=== PATIENT | female | born 1965 | race Caucasian/White ===

== ENCOUNTER 2016-08-15 13:10 | Emergency (ER) | payer OTHER ==
[2016-08-15 14:17] VITALS: TEMP 98.7; BMI 20.7
[2016-08-15] MEDS ORDERED: CYCLOBENZAPRINE 10 MG TAB PO ONE (14:18)
[2016-08-15] MEDS ORDERED: OXYCODONE HCL 5 MG TABLET PO ONE (14:18)
--- NOTE | 2016-08-15 14:18 | EDPRACDOC ---
- General Information Chief Complaint: Back Pain Stated Complaint: BACK PAIN Time Seen by Provider: 08/15/16 14:11 Home Medications: Home Medications Prednisone [Deltasone, Orasone] 1 tab PO DAILY #10 tablet 01/07/15 Cyclobenzaprine HCl [Flexeril] 10 mg PO TID PRN #20 tablet 08/15/16 Ketoprofen 50 mg PO BID PRN #20 capsule 08/15/16 Metoprolol Tartrate [Lopressor] 25 mg PO DAILY #30 tablet 08/15/16 Allergies/Adverse Reactions: Allergies Allergy/AdvReac Type Severity Reaction Status Date / Time Penicillins Allergy Edema-Oral/ Verified 07/21/14 12:08 Lip - History of Present Illness Onset: LAST NIGHT HPI: PT STATES SHE WAS GOING UP STEPS LAST NIGHT, SLIPPED AND FELL BACKWARDS, TWISTED HER BACK, STATES SHE CAUGHT HERSELF WITH HER RIGHT HAND. PT COMPLAINS OF SHARP STABBING PAIN IN LEFT LOWER BACK, RADIATING DOWN LEFT LEG, NO NUMBNESS OR TINGLING, NO BOWEL OR BLADDER DYSFUNCTION. Pain Location: Reports: Left, Lower, Lumbar Pain Radiates To: Reports: None Pain Caused By: Reports: Blunt Trauma, Twisting Circumstances: Reports: Fall Relevant History: Reports: None Pain Severity: Reports: Severe Pain Quality: Reports: Sharp, Stabbing Worsened By: Reports: Movement, Twisting, Walking Associated Signs and Symptoms: Denies: Abdominal Pain, Dysuria, Hematuria, Nausea, Vomiting ED Past Medical History - History Reviewed Yes Nurses notes reviewed and agree except as marked - Patient Medical History Cardiac History: Reports: Hypertension ("ONLY WHEN I'M ANXIOUS") Psychological History: Reports: Anxiety Systemic History: Denies: Cancer Surgical History: Reports: Other (TUBAL LIGATION) - Family Medical History Reports: Diabetes (AUNTS), Cancer (FATHER RENAL), Cardiac Disorders (MOTHER CO) . Denies: Hypertension, Stroke - Social Medical History Smoking Status: Heavy tobacco smoker (5 or more cigarettes/day or daily pipe/ cigar) ETOH: None Substance Abuse: None EDM Review of Systems - Review of Systems Constitutional: negative: Chills, Fever Genitourinary: negative: Dysuria, Frequency Neurological: negative: Dizziness, Headache, Numbness, Weakness Musculoskeletal: Back Integumentary: No Symptoms Reported - Physical Exam Constitutional: Alert (Awake), No apparent distress Oriented to: Time, Person, Place Last recorded Vital Signs: Oxygen Pulse Oxygen Saturation O2 Device Oxygen Flow Rate Fraction of Inspired Oxygen ( FIO2) - HEENT Head: Normal ( normocephalic) - Integumentary Skin: Normal, Warm, Dry Lymphatics: Normal (no adenopathy) - Neurologic Memory Impaired: Normal Motor Function: Normal (Normal tone, Pulses 2+ No cyanosis or edema, FROM) Cranial Nerve: Normal (CN II-X11 intact sensation, strength 5/5) Cerebellar: Normal Mood Description: Normal Perception: Normal ED Back Exam - Neurologic Motor Deficit: None - Musculoskeletal Cervical: Normal Thoracic: Normal Lumbar: Tender Midline: Normal Paraspinous: Tender Straight Leg Raise: Negative Pelvis: Normal - Differential Diagnosis DJD, HNP, Musculoskeletal pain, Strain Decision Time to Discharge: 15:21 - Departure Disposition: Home Condition: Stable Final Diagnosis: Acute low back pain Hypertension Qualifiers: Hypertension type: essential hypertension Qualified Code(s): I10 - Essential ( primary) hypertension Instructions: Acute Low Back Pain (ED), Chronic Hypertension (ED) Education/Counseling Given To: Patient Education/Counseling Given Regarding: Diagnosis, Treatment, Prognosis, Follow Up Referrals: Deshawn Robledo MD [Staff Physician] - One Week Prescriptions: Cyclobenzaprine HCl [Flexeril] 10 mg PO TID PRN #20 tablet PRN Reason: Muscle Spasms Ketoprofen 50 mg PO BID PRN #20 capsule PRN Reason: Pain Metoprolol Tartrate [Lopressor] 25 mg PO DAILY #30 tablet Additional Instructions: Back Pain: apply warm compresses to affected area 20 mins at a time 4 - 5 times daily as needed for pain FOLLOW UP WITH A PRIMARY CARE PROVIDER FOR RECHECK OF YOUR BLOOD PRESSURE
[2016-08-15 15:20] VITALS: BP 200/100; PULSE 76
== END 2016-08-15 15:28 | disposition home or self-care (01) ==
LOC: EDMC 13:10
DX: M54.5 Low back pain (principal); I10 Essential (primary) hypertension
CPT/HCPCS: 99283; J3490